=== PATIENT | male | born 1990 ===

== ENCOUNTER 2017-06-07 14:54 | Emergency (ER) | payer MEDICAID ==
[2017-06-07 15:18] VITALS: BP 140/83; PULSE 105; RESP 18; TEMP 98.6; O2SAT 96
--- NOTE | 2017-06-07 15:48 | RAD ---
HISTORY: COUGH COMPARISON: None available. TECHNIQUE: Chest PA and lateral FINDINGS: LUNGS: No focal consolidation. Please note that chest x-ray has limited sensitivity for the detection of pulmonary masses. PLEURA: No significant pleural effusion identified. No definite pneumothorax . CARDIOVASCULAR: Heart size appears within normal limits. OSSEOUS STRUCTURES: No acute osseous abnormality identified. VISUALIZED UPPER ABDOMEN: Unremarkable. OTHER FINDINGS: None. IMPRESSION: No focal consolidation, significant pleural effusion, or definite pneumothorax identified.
--- NOTE | 2017-06-07 16:07 | C.PDOC ---
History Of Present Illness 27 year old male presents to the ED for evaluation of new onset of productive cough which began 4 days ago. Patient reports cough is productive of yellow phlegm and reports "rattling" sound in chest. Denies history of asthma or smoking. Patient denies chest pain, GIOVANA, or any other associated symptoms at this time. Patient was able to find relief with Mucinex. COUGH X 2 WEEKS, NEW ONSET PRODUCTIVE X 4 DAYS. +YELLOW PHLEGM, CHEST "RATTLING ". NO ASTHMA, SMOKING. DENIES CP, GIOVANA, OTHER ASSOC SX. +RELIEF W MUCINEX EXAM NARD HEENT NEG LUNGS +BRONCHIAL AYDEN NO W/R/R RETRACTION REMAINDER NEG Time Seen by Provider: 06/07/17 15:24 Chief Complaint (Nursing): Cough, Cold, Congestion History Per: Patient History/Exam Limitations: no limitations Onset/Duration Of Symptoms: Days (4) Current Symptoms Are (Timing): Still Present Associated Symptoms: Cough, Sputum (yellow) Additional History Per: Patient Past Medical History Reviewed: Historical Data, Nursing Documentation, Vital Signs Vital Signs: Last Vital Signs Temp 98.6 F 06/07/17 15:14 Pulse 105 H 06/07/17 15:14 Resp 18 06/07/17 15:14 BP 140/83 06/07/17 15:14 Pulse Ox 96 06/07/17 16:07 - Medical History PMH: No Chronic Diseases Surgical History: No Surg Hx Family History: States: Unknown Family Hx - Social History Hx Alcohol Use: No Hx Substance Use: No - Immunization History Hx Tetanus Toxoid Vaccination: No Hx Influenza Vaccination: No Hx Pneumococcal Vaccination: No Review Of Systems Cardiovascular: Positive for: Chest Pain Respiratory: Positive for: Cough, Sputum Physical Exam - Physical Exam Appears: Non-toxic, No Acute Distress Skin: Normal Color, Warm, Dry Head: Atraumatic, Normacephalic Eye(s): bilateral: Normal Inspection Ear(s): Bilateral: Normal Nose: Normal, No Discharge Oral Mucosa: Moist Throat: Normal, No Erythema, No Exudate Neck: Supple Chest: Symmetrical, No Deformity, No Tenderness Cardiovascular: Rhythm Regular, No Murmur Respiratory: No Rales, No Rhonchi, No Wheezing, Other (bronchial congestion. no retraction ) Extremity: Normal ROM, Capillary Refill (less than 2 seconds ) Neurological/Psych: Oriented x3, Normal Speech, Normal Cognition Gait: Steady ED Course And Treatment O2 Sat by Pulse Oximetry: 96 (on RA) Pulse Ox Interpretation: Normal Progress Note: CXR ordered and reviewed. Disposition Counseled Patient/Family Regarding: Studies Performed, Diagnosis, Need For Followup, Rx Given - Disposition Referrals: YOUR,PMD [Other] Disposition: HOME/ ROUTINE Disposition Time: 16:00 Condition: GOOD Prescriptions: Azithromycin 250 mg PO DAILY #6 tab Instructions: Acute Bronchitis (ED) Forms: [employer] (Green[place]ic), Work Excuse - Clinical Impression Clinical Impression: Bronchitis - Scribe Statement The provider has reviewed the documentation as recorded by the Scribe (Kymberly Mcwilliams) Provider Attestation: All medical record entries made by the Scribe were at my direction and personally dictated by me. I have reviewed the chart and agree that the record accurately reflects my personal performance of the history, physical exam, medical decision making, and the department course for this patient. I have also personally directed, reviewed, and agree with the discharge instructions and disposition.
== END 2017-06-07 16:36 | disposition home or self-care (01) ==
LOC: C.ER 14:54
DX: J40 Bronchitis, not specified as acute or chronic (principal)